=== PATIENT | female | born 1995 | race Two or more races ===

== ENCOUNTER 2018-01-08 22:32 | Emergency (ER) | payer SELFPAY ==
[2018-01-08 22:37] VITALS: BP 125/90; PULSE 106; TEMP 99; BMI 23.8
[2018-01-08] MEDS ORDERED: ALBUTEROL SO4 0.083% IH SOL 2.5 MG/3 ML VIAL.NEB. NEB ONE (22:56)
[2018-01-08] MEDS ORDERED: ALBUTEROL SO4 2.5/IPRATROPIUM 0.5 INH SOL 3 ML VIAL.NEB. NEB ONE (22:56)
--- NOTE | 2018-01-08 23:12 | PDOC ---
History of Present Illness - General Chief Complaint: Asthma Stated Complaint: SOB, COUGH, CHEST TIGHT Time Seen by Provider: 01/08/18 23:11 - History of Present Illness Initial Comments: 22 year old female with PMH of asthma presenting with 2 hours of central chest tightness that has not resolved with 4 doses of her albuterol inhaler without much relief of her symptoms. Denies fevers, chills, cough, or other symptoms. Her chest pain is non-radiating, and does not co-present with diaphoresis, nausea, vomiting, or other symptoms. 01/08/18 23:43 Past History - Past Medical History Allergies/Adverse Reactions: Allergies Allergy/AdvReac Type Severity Reaction Status Date / Time No Known Allergies Allergy Verified 01/08/18 22:37 Asthma: Yes COPD: No - Surgical History Abdominal Surgery: Yes (HERNIA) - Suicide/Smoking/Psychosocial Hx Smoking History: Never smoked Review of Systems - Review of Systems Constitutional: No: Chills, Diaphoresis, Fever, Loss of Appetite HEENTM: No: Eye Pain, Blurred Vision, Tearing Respiratory: Yes: Cough, Shortness of Breath, SOB at Rest, Wheezing. No: SOB with Exertion, Productive cough Cardiac (ROS): Yes: Chest Pain, Chest Tightness. No: Irregular Heart Rate, Lightheadedness, Palpitations, Syncope ABD/GI: No: Nausea, Vomiting : No: Burning, Dysuria Musculoskeletal: No: Back Pain, Gout, Joint Pain Integumentary: No: Lesions, Lumps, Pallor Neurological: No: Numbness, Paresthesia, Tremors, Weakness Psychiatric: No: Anxiety, Depression Endocrine: No: Excessive Sweating, Flushing Hematologic/Lymphatic: No: Anemia, Blood Clots, Easy Bleeding *Physical Exam - Vital Signs Last Vital Signs Temp Pulse Resp BP Pulse Ox 99 F 106 H 18 125/90 100 01/08/18 22:34 01/08/18 22:34 01/08/18 22:34 01/08/18 22:34 01/08/18 22:34 - Physical Exam General Appearance: Yes: Nourished, Appropriately Dressed. No: Apparent Distress HEENT: positive: EOMI, TOMÁS, Normal ENT Inspection, Normal Voice Neck: positive: Trachea midline, Normal Thyroid, Supple. negative: Tender, Rigid Respiratory/Chest: positive: Decreased Breath Sounds, Wheezing. negative: Chest Tender, Lungs Clear (slight constricted lower lung mccartney), Normal Breath Sounds, Respiratory Distress, Accessory Muscle Use, Labored Respiration, Paradoxal Breathing, Crackles, Rales Cardiovascular: positive: Regular Rhythm, Regular Rate Gastrointestinal/Abdominal: positive: Normal Bowel Sounds, Flat, Soft. negative : Tender Musculoskeletal: positive: Normal Inspection. negative: CVA Tenderness Extremity: positive: Normal Capillary Refill, Normal Inspection, Normal Range of Motion. negative: Tender Integumentary: positive: Normal Color, Dry, Warm Neurologic: positive: wire chief II-XII NML intact, Fully Oriented, Alert, Normal Mood/ Affect, Normal Response, Motor Strength 5/5 Medical Decision Making - Medical Decision Making 22 year old with asthma and chest tightness for the past day. Patient used her inhaler x 4 without relief of symptoms. All symptoms improved here with duoneb x1 and Tylenol 1 G. Lungs sound improved. Patient DC'd with PCP follow up at our clinic. 01/09/18 02:17 *DC/Admit/Observation/Transfer Diagnosis at time of Disposition: Asthma Qualifiers: Asthma severity: mild Asthma persistence: intermittent Asthma complication type : with acute exacerbation Qualified Code(s): J45.21 - Mild intermittent asthma with (acute) exacerbation - Discharge Dispostion Disposition: HOME Condition at time of disposition: Improved Decision to Admit order: No - Referrals Referrals: [facility] [place] Internal Med at [place] [Provider Group] - Patient Instructions Printed Discharge Instructions: Asthma -- Adult Additional Instructions: PLease use your inhaler as needed. Please follow up at the [facility] this week to get your primary care follow up. Please return to the ED if you have worsening breathing symptoms. - Post Discharge Activity
[2018-01-08] MEDS ORDERED: ACETAMINOPHEN 500 MG TABLET (FP) PO ONE (23:41)
[2018-01-08] MEDS ORDERED: ACETAMINOPHEN 325 MG TABLET (FP) ONE (23:47)
--- NOTE | 2018-01-09 02:54 | PDOC ---
Attending Attestation - Resident Resident Name: Francis Crawford - ED Attending Attestation I have performed the following: I have examined & evaluated the patient, The case was reviewed & discussed with the resident, I agree w/resident's findings & plan, Exceptions are as noted - HPI HPI: 01/09/18 02:48 22 yo female with history of asthma experienced chest tightness tonight that was not improved with her inhaler slender 22 yo female in no acute distress head ncat neck no jvd,supple lungs cta b/l cvs [id number] abd soft,nontender ext no edema skin warm and dry neuro axox3,no gross focal deficits - Physicial Exam PE: 01/10/18 02:42 please see above physical exam - Medical Decision Making 01/09/18 02:54 22 yo female w c/o chest tightness had her symptoms resolved with albuterol treatment pt states she has infrequent asthma exacerbations Currently she has no PCP and will be given a referral imp asthma
--- NOTE | 2018-01-09 10:38 | EKG ---
Test Reason : Blood Pressure : / mmHG Vent. Rate : 107 BPM Atrial Rate : 107 BPM P-R Int : 138 ms QRS Dur : 066 ms QT Int : 328 ms P-R-T Axes : 058 014 018 degrees QTc Int : 437 ms SINUS TACHYCARDIA OTHERWISE NORMAL ECG NO PREVIOUS ECGS AVAILABLE Confirmed by Maicol Cesar MD ([id number]) on 01/09/2018 10:38:30 AM Referred By: Confirmed By:Maicol Cesar MD
== END 2018-01-09 01:55 | disposition home or self-care (01) ==
LOC: JER 22:32
DX: J45.21 Mild intermittent asthma with (acute) exacerbation (principal)
CPT/HCPCS: 84703; 93005; 93010; 99282-25

== ENCOUNTER 2018-01-19 23:19 | Observation (INO) | payer OTHER ==
[2018-01-20 00:21] VITALS: BMI 26.5
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
[2018-01-20] MEDS ORDERED: ACETAMINOPHEN 325 MG TABLET (FP) PO ONE (02:05)
[2018-01-20] MEDS ORDERED: ALBUTEROL SO4 0.083% IH SOL 2.5 MG/3 ML VIAL.NEB. NEB ONE ×2 (02:05→02:40)
[2018-01-20] MEDS ORDERED: ACETAMINOPHEN 325 MG TABLET (FP) ONE ×2 (02:41→09:43)
[2018-01-20 03:29] LABS: URINE APPEARANCE CLOUDY; URINE BILIRUBIN NEGATIVE (<2.0 mg/dL); URINE COLOR YELLOW; URINE GLUCOSE (UA) NEGATIVE (NEGATIVE); URINE KETONE TRACE (NEGATIVE); URINE LEUK ESTERASE NEGATIVE (NEGATIVE); URINE NITRITE NEGATIVE (NEGATIVE); URINE PROTEIN 2+ (NEGATIVE); URINE UROBILINOGEN NEGATIVE mg/dL (0.2-1.0)
[2018-01-20 03:33] LABS: COCAINE, UR NEGATIVE ng/ml (CUTOFF=300); METHADONE, UR NEGATIVE ng/ml (CUTOFF=300); OPIATES, URI NEGATIVE ng/ml (CUTOFF=300); PHENCYCLIDINE,URINE NEGATIVE ng/ml (CUTOFF=25); URINE AMPHETAMINES NEGATIVE ng/ml (CUTOFF=500); URINE BARBITURATES NEGATIVE ng/ml (CUTOFF=200); URINE BENZODIAZEPINES NEGATIVE ng/ml (CUTOFF=200)
[2018-01-20 03:36] LABS: EPI CELLS MANY /HPF (FEW); URINE BACTERIA FEW /hpf (NONE SEEN); URINE HYALINE CAST 8 /lpf; URINE MUCUS FEW
[2018-01-20 05:14] LABS: BASO % 0.9 % (0-2.0); EOS % 0.2 % (0-4.5); HEMATOCRIT 38.4 % (32.4-45.2); HEMOGLOBIN 12.8 GM/dL (10.7-15.3); LYMPH % 29.3 % (8-40); MCH 30.7 pg (25.7-33.7); MCHC 33.3 g/dl (32.0-36.0); MEAN CELL VOLUME 92.2 fl (80-96); MEAN PLT VOLUME 7.2 fl (7.5-11.1); MONO % 6.9 % (3.8-10.2); NEUT % 62.7 % (42.8-82.8); PLATELET COUNT 275 K/MM3 (134-434); RBC 4.17 M/mm3 (3.60-5.2); RDW 12.7 % (11.6-15.6); WHITE BLOOD COUNT 7.3 K/mm3 (4.0-10.0)
[2018-01-20 05:21] LABS: ALBUMIN 4.3 g/dl (3.4-5.0); ALK PHOS 53 U/L (45-117); ANION GAP 10 MMOL/L (8-16); BILIRUBIN,TOTAL 0.8 mg/dL (0.2-1); BLOOD UREA NITROGEN 10 mg/dL (7-18); CALCIUM 9.1 mg/dL (8.5-10.1); CHLORIDE 104 mmol/L (98-107); CO2 24 mmol/L (21-32); CREATININE 0.7 mg/dL (0.55-1.3); GLUCOSE,RANDOM 78 mg/dL (74-106); POTASSIUM 3.7 mmol/L (3.5-5.1); SGOT/AST 19 U/L (15-37); SGPT/ALT 21 U/L (13-61); SODIUM 138 mmol/L (136-145); TOT PROT 7.7 g/dl (6.4-8.2)
[2018-01-20] MEDS ORDERED: ACETAMINOPHEN 325 MG TABLET (FP) PO PRN (09:35)
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
[2018-01-20 14:32] VITALS: BP 114/82; PULSE 97; TEMP 97.9
--- NOTE | 2018-01-20 17:10 | EKG ---
Test Reason : Blood Pressure : / mmHG Vent. Rate : 088 BPM Atrial Rate : 088 BPM P-R Int : 164 ms QRS Dur : 062 ms QT Int : 366 ms P-R-T Axes : 048 023 023 degrees QTc Int : 442 ms NORMAL SINUS RHYTHM NORMAL ECG WHEN COMPARED WITH ECG OF 08-JAN-2018 23:12, NONSPECIFIC T WAVE ABNORMALITY NO LONGER EVIDENT IN ANTERIOR LEADS Confirmed by MD BANG, KARI ([id number]) on 01/20/2018 5:10:22 PM Referred By: Confirmed By:KARI CUENCA MD
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
== END 2018-01-20 18:17 | disposition home or self-care (01) ==
LOC: JER 23:19 → JERBED 01-20 07:24 → UNDOADMOB 01-20 07:24 → INTOOBSV 01-20 07:24 → JERBED 01-20 09:35
PROVIDERS: ADMIT Internal Medicine; ATTEND Internal Medicine
PROC: 3E0F7GC Introduction of Other Therapeutic Substance into Respiratory Tract, Via Natural or Artificial Opening (ICD-10-PCS; principal; 2018-01-20)
DX: S06.0X1A Concussion with loss of consciousness of 30 minutes or less, initial encounter (principal); R56.1 Post traumatic seizures; S63.612A Unspecified sprain of right middle finger, initial encounter; Y04.8XXA Assault by other bodily force, initial encounter; Y93.89 Activity, other specified; Y92.099 Unspecified place in other non-institutional residence as the place of occurrence of the external cause; Y99.8 Other external cause status; Y07.499 Other family member, perpetrator of maltreatment and neglect; J45.909 Unspecified asthma, uncomplicated
CPT/HCPCS: 36415; 70450-TC; 71046-TC-FY; 72070-TC-FY; 72125-TC; 73130-TC-RT-FY; 80053; 80307; 81003; 81015; 84703; 85025; 87086; 87804; 93005; 93010; 94640; 99285-25; G0378

== ENCOUNTER 2018-05-06 15:18 | Emergency (ER) | payer OTHER ==
[2018-05-06 15:28] VITALS: BP 131/75; PULSE 89; TEMP 97.9; BMI 25.6
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
[2018-05-06] MEDS ORDERED: SODIUM CHLORIDE 0.9% 500 ML INFUS.BAG IV ONE (16:47)
--- NOTE | 2018-05-06 16:54 | PDOC ---
Attending Attestation - HPI HPI: 05/06/18 17:21 The patient is a 23 year old female A0, with no significant past medical history, who presents to the emergency department with, 6 days of crampy , sharp abdominal pain with associated nausea and 2 episodes of vomiting. Patient describes her pain as worsening with BM and movement with associated bilateral breast swelling and decreased appetite. Patient notes she took an at home test just prior to the onset of her symptoms which was positive. She denies any vaginal bleeding or abnormal vaginal discharge. She denies recent fevers, chills, headache or dizziness. She denies recent diarrhea or constipation. She denies recent dysuria, frequency, urgency or hematuria. She denies recent chest pain or shortness of breath. Allergies: NKDA LMP: Late February 2018 <Gonzalez Pierce - Last Filed: 05/06/18 19:29> - Resident Resident Name: Sho Daniels - ED Attending Attestation I have performed the following: I have examined & evaluated the patient, The case was reviewed & discussed with the resident, I agree w/resident's findings & plan, Exceptions are as noted - Physicial Exam PE: 05/06/18 18:54 General: no acute distress, well appearing HEENT: normocephalic, atrauamtic, moist mucus membranes PULM: cta b/l, no wheeze/rales CARD: rrr, no mrg ABD: soft, distractible volutnary guarding, mild lower abd tenderness ext: no swelling, neg homans - Medical Decision Making 05/06/18 16:53 23y F presents with cramping abd pain that is worse with movement and having BMs (last BM was normal this morning) no associated diarrhea, melena, bpr. Pain is intermittent, in the lower abdomen, not affected by food intake Pt also notes decreased appetite. also endorses associated iwth nausea w/o vomiting and swollen breasts. no history of in the past. denies any vag bleeding, vag discharge, fever/chills, constipation. +urine test at home on resident exam, she noticed RUQ ttp, that I did not appreciated will ck GB US to r/o cholelithasis, cholecystitis TVUS to r/o ectopic will also r/o uti 05/06/18 18:58 labs reviewed and unremarkble ua negative awaiitng US results - if neg, will dc with fu with obgyn as she does not have care. <Rustam López - Last Filed: 05/08/18 22:11> Attestations - Attestations 05/06/18 17:22 Documentation prepared by Gonzalez Pierce, acting as medical office professional instructor for Rustam López MD. <Gonzalez Pierce - Last Filed: 05/06/18 19:29> - Attestations Physician Attestation: 05/08/18 22:11 A portion of this note was documented by scribe services under my direction. I have reviewed the details of the note, within reason, and agree with the documentation with the following case summary and management plan written by me <Rustam López - Last Filed: 05/08/18 22:11>
[2018-05-06 17:29] LABS: HCG,QUALITATIVE URINE Positive
[2018-05-06 17:31] LABS: URINE APPEARANCE CLEAR; URINE BILIRUBIN NEGATIVE (<2.0 mg/dL); URINE COLOR STRAW; URINE GLUCOSE (UA) NEGATIVE (NEGATIVE); URINE KETONE NEGATIVE (NEGATIVE); URINE LEUK ESTERASE NEGATIVE (NEGATIVE); URINE NITRITE NEGATIVE (NEGATIVE); URINE PROTEIN NEGATIVE (NEGATIVE); URINE UROBILINOGEN NEGATIVE mg/dL (0.2-1.0)
[2018-05-06 17:36] LABS: BASO % 1.4 % (0-2.0); EOS % 1.1 % (0-4.5); HEMATOCRIT 37.5 % (32.4-45.2); HEMOGLOBIN 13.3 GM/dL (10.7-15.3); LYMPH % 31.6 % (8-40); MCH 33.2 pg (25.7-33.7); MCHC 35.4 g/dl (32.0-36.0); MEAN CELL VOLUME 93.8 fl (80-96); MEAN PLT VOLUME 7.3 fl (7.5-11.1); NEUT % 58.9 % (42.8-82.8); PLATELET COUNT 265 K/MM3 (134-434); RBC 3.99 M/mm3 (3.60-5.2); RDW 12.3 % (11.6-15.6); WHITE BLOOD COUNT 5.2 K/mm3 (4.0-10.0)
[2018-05-06 18:24] LABS: ALBUMIN 4.2 g/dl (3.4-5.0); ALK PHOS 54 U/L (45-117); ANION GAP 7 MMOL/L (8-16); BILIRUBIN,TOTAL 0.4 mg/dL (0.2-1); BLOOD UREA NITROGEN 6 mg/dL (7-18); CALCIUM 9.2 mg/dL (8.5-10.1); CHLORIDE 104 mmol/L (98-107); CO2 24 mmol/L (21-32); CREATININE 0.5 mg/dL (0.55-1.3); GLUCOSE,RANDOM 76 mg/dL (74-106); POTASSIUM 4.1 mmol/L (3.5-5.1); SGOT/AST 25 U/L (15-37); SGPT/ALT 32 U/L (13-61); SODIUM 135 mmol/L (136-145); TOT PROT 7.7 g/dl (6.4-8.2)
== END 2018-05-06 21:36 | disposition home or self-care (01) ==
LOC: JER 15:18
DX: O26.891 Other specified pregnancy related conditions, first trimester (principal); R10.11 Right upper quadrant pain; Z3A.01 Less than 8 weeks gestation of pregnancy
CPT/HCPCS: 36415; 76705-TC; 76801-TC; 80053; 81003; 84702; 84703; 85025; 86850; 86900; 86901; 87086; 99282-25

== ENCOUNTER 2018-07-18 15:37 | Emergency (ER) | payer SELFPAY | END 2018-07-18 19:00 | disposition home or self-care (01) | LOC: JER 15:37 ==